=== PATIENT | male | born 1945 | race Caucasian/White ===

== ENCOUNTER → 2018-07-17 | Outpatient (CLI) | payer MEDICARE ==
[~2018-07-17] MED LIST: FENO145T30 PO; FINA5TAB4 PO; MOME13HF INH; MONT10TA6 PO; ONDA4TAB13 SL; OXYC-302 PO; TAMS-11 PO
== END | disposition home or self-care (01) ==
LOC: CFH 07:33
PROVIDERS: ATTEND Internal Medicine
DX: M17.12 Unilateral primary osteoarthritis, left knee (principal); M25.561 Pain in right knee

== ENCOUNTER → 2019-02-19 | Outpatient (CLI) | payer MEDICARE ==
[2019-02-19 16:11] LABS: BASOPHILS # (AUTO) 0.02 x10^3/uL (0-0.1); BASOPHILS % (AUTO) 0 % (0-1); EOSINOPHILS % (AUTO) 3 % (1-7); LYMPHOCYTES # (AUTO) 1.74 x10^3/uL (1-3.4); LYMPHOCYTES % (AUTO) 24 % (22-44); MD NO; MEAN CORPUSCULAR HEMOGLOBIN 32.1 pg (27.5-34.5); MEAN CORPUSCULAR HGB CONC 33.6 g/dL (33.2-36.2); MEAN CORPUSCULAR VOLUME 95.6 fL (81-97); MEAN PLATELET VOLUME 8.8 fL (7.4-10.4); MONOCYTES # (AUTO) 0.41 x10^3/uL (0.2-0.8); MONOCYTES % (AUTO) 6 % (2-9); NEUTROPHILS # (AUTO) 4.87 x10^3/uL (1.8-6.8); NEUTROPHILS % (AUTO) 67 % (42-75); PLATELET COUNT 281 x10^3/uL (130-400); RED BLOOD COUNT 5.18 x10^6/uL (4.38-5.82)
[2019-02-19 16:22] LABS: ANION GAP 6 mmol/L (5-15); CALCIUM 8.7 mg/dL (8.5-10.1); CHLORIDE 112 mmol/L (98-107); CREATININE 0.99 mg/dL (0.7-1.3)
== END | disposition home or self-care (01) ==
LOC: STAR 15:08
PROVIDERS: ATTEND Orthopaedic Surgery
DX: Z01.818 Encounter for other preprocedural examination (principal); M17.11 Unilateral primary osteoarthritis, right knee
CPT/HCPCS: 36415; 80048; 85025; 87081; 93005

== ENCOUNTER → 2019-02-23 | Outpatient (CLI) | payer MEDICARE ==
[~2019-02-23] MED LIST changes: +DEXAMETHASONE 4 MG/ML, 1ML ONE; +FENTANYL PF 250 MCG/5ML ONE; +HYDR-36 PO; +LIDOCAINE-MPF 2% ,5ML ONE; +MIDAZOLAM 1 MG/ML, 2ML ONE; +ONDANSETRON 2MG/ML, 2ML ONE; +PROPOFOL 10 MG/ML, 20ML ONE; +ROCURONIUM 10MG/ML,5ML ONE
== END | disposition home or self-care (01) ==
LOC: CFH 08:37
PROVIDERS: ATTEND Internal Medicine
DX: R05 Cough (principal)
CPT/HCPCS: 71046

== ENCOUNTER 2019-02-25 09:07 | Observation (INO) | payer MEDICARE ==
[~2019-02-25] VITALS: Ht 172.7 cm; Wt 96.0 kg
[~2019-02-25 09:07] MED LIST changes: -DEXAMETHASONE 4 MG/ML, 1ML ONE; -FENTANYL PF 250 MCG/5ML ONE; -HYDR-36 PO; -LIDOCAINE-MPF 2% ,5ML ONE; -MIDAZOLAM 1 MG/ML, 2ML ONE; -ONDANSETRON 2MG/ML, 2ML ONE; -PROPOFOL 10 MG/ML, 20ML ONE; -ROCURONIUM 10MG/ML,5ML ONE
[2019-02-25 09:29] VITALS: BP 148/90
[2019-02-25] MEDS ORDERED: LACTATED RINGERS 1,000 ML IV SCH (09:32)
[2019-02-25] MEDS ORDERED: DEXAMETHASONE 4 MG/ML, 1ML ONE ×2 (10:37→11:28)
[2019-02-25] MEDS ORDERED: PROPOFOL 10 MG/ML, 20ML ONE ×2 (10:37→11:28)
[2019-02-25] MEDS ORDERED: LIDOCAINE-MPF 2% ,5ML ONE (10:37)
[2019-02-25] MEDS ORDERED: FENTANYL PF 250 MCG/5ML ONE (10:37)
[2019-02-25] MEDS ORDERED: ESTRADIOL 0.1 MG/24 HR PATCH ONE (10:37)
[2019-02-25] MEDS ORDERED: MIDAZOLAM 1 MG/ML, 2ML ONE (10:37)
[2019-02-25] MEDS ORDERED: ROCURONIUM 10MG/ML,5ML ONE (10:37)
[2019-02-25] MEDS ORDERED: ONDANSETRON 2MG/ML, 2ML ONE ×2 (10:37→11:28)
[2019-02-25] MEDS ORDERED: ROPIvacaine/PF 0.2%, 20 ML ONE (11:01)
[2019-02-25] MEDS ORDERED: TRANEXAMIC ACID 100 MG/ML, 10ML ONE (11:01)
[2019-02-25] MEDS ORDERED: KETOROLAC 60 MG/2 ML ONE (11:01)
[2019-02-25] MEDS ORDERED: VANCOMYCIN 1,000 MG ONE (11:02)
[2019-02-25] MEDS ORDERED: SODIUM CHLORIDE 0.9% 50 ML ONE (11:02)
[2019-02-25] MEDS ORDERED: EPINEPHRINE 1 MG/ML, 1ML ONE (11:02)
[2019-02-25] MEDS ORDERED: CEFAZOLIN 1,000 MG ONE (11:28)
[2019-02-25] MEDS ORDERED: LABETALOL 5MG/ML, 20ML IV PRN (12:00)
[2019-02-25] MEDS ORDERED: ONDANSETRON 2MG/ML, 2ML IV PRN ×2 (12:00→12:30)
[2019-02-25] MEDS ORDERED: MEPERIDINE/PF 25MG/ML,1ML IVPush PRN (12:00)
[2019-02-25] MEDS ORDERED: METOCLOPRAMIDE 5 MG/ML, 2ML IV PRN (12:00)
[2019-02-25] MEDS ORDERED: OXYcodone 5 MG/5 ML ORAL.SOL UDC PO PRN (12:00)
[2019-02-25] MEDS ORDERED: hydrALAzine 20 MG/ML, 1ML IV PRN (12:00)
[2019-02-25] MEDS ORDERED: ACETAMINOPHEN 325 MG TABLET PO PRN (12:00)
[2019-02-25] MEDS ORDERED: LORazepam 2 MG/ML, 1ML IVPush PRN (12:00)
[2019-02-25] MEDS ORDERED: ZOLPIDEM 5MG TABLET PO PRN (12:30)
[2019-02-25] MEDS ORDERED: PROMETHAZINE 12.5 MG SUPP PR PRN (12:30)
[2019-02-25] MEDS ORDERED: MOMETASONE INH PRN (12:30)
[2019-02-25] MEDS ORDERED: ACETAMINOPHEN 500 MG TABLET PO SCH (12:30)
[2019-02-25] MEDS ORDERED: FORMOTEROL INH PRN (12:30)
[2019-02-25] MEDS ORDERED: BISACODYL 10 MG SUPP PR PRN (12:30)
[2019-02-25] MEDS ORDERED: DIAZEPAM 5 MG TABLET PO PRN (12:30)
[2019-02-25] MEDS ORDERED: SENNA/DOCUSATE TABLET PO PRN (12:30)
[2019-02-25] MEDS ORDERED: ONDANSETRON 4 MG TABLET PO PRN (12:30)
[2019-02-25] MEDS ORDERED: PSYLLIUM PACKET PO PRN (12:30)
[2019-02-25] MEDS ORDERED: ALUMINUM/MAG/SIMETHICONE 30 ML UDC PO PRN (12:30)
[2019-02-25] MEDS ORDERED: PROMETHAZINE 25 MG/ML, 1ML IM PRN (12:30)
[2019-02-25] MEDS ORDERED: HYDROcodone/APAP 10/325 MG TABLET PO PRN (12:30)
[2019-02-25] MEDS ORDERED: MAGNESIUM HYDROXIDE 8%, 30ML UDC PO PRN (12:30)
[2019-02-25] MEDS ORDERED: SCOPOLAMINE PATCH, 1.5MG PATCH.TD72 TD SCH (12:30)
[2019-02-25] MEDS ORDERED: HYDROmorphone 1 MG/ML, 1ML INJ IVPush PRN (12:30)
[2019-02-25] MEDS ORDERED: DIPHENHYDRAMINE 25 MG CAPSULE PO PRN (12:30)
[2019-02-25] MEDS ORDERED: TRANEXAMIC ACID 1,000 MG in SODIUM CHLORIDE 0.9% 100 ML IVPB ONE (13:00)
[2019-02-25] MEDS ORDERED: FENTANYL PF 100 MCG/2ML ONE (13:03)
[2019-02-25] MEDS ORDERED: OXYcodone 5 MG/5 ML ORAL.SOL UDC ONE ×2 (13:04→13:06)
[2019-02-25] MEDS: FENTANYL PF 100 MCG/2ML IV PRN ×2 (13:05→13:10)
[2019-02-25] MEDS ORDERED: HYDROmorphone 1 MG/ML, 1ML INJ ONE (13:19)
[2019-02-25] MEDS: HYDROmorphone 2 MG/ML, 1ML IVPush PRN ×2 (13:20→13:30)
[2019-02-25 14:58] VITALS: BP 171/91
[2019-02-25 15:17] VITALS: BP 182/92
[2019-02-25] MEDS: D5%-0.45% NACL 1,000 ML IV SCH (15:50)
[2019-02-25] MEDS: CALCIUM/VITAMIN D3 250-125 TABLET PO SCH (17:01)
[2019-02-25] MEDS: FERROUS SULFATE 325 MG TABLET PO SCH (17:01)
[2019-02-25 19:30] VITALS: BP 149/88
[2019-02-25] MEDS: KETOROLAC 30 MG/1 ML IV SCH (20:02)
[2019-02-25] MEDS: DOCUSATE 100 MG CAPSULE PO SCH (20:02)
[2019-02-25] MEDS: ASPIRIN 81 MG TABLET EC PO SCH (20:02)
[2019-02-25] MEDS: CEFAZOLIN PMX 2GM/50ML 50 ML IVPB SCH (20:04)
[2019-02-25] MEDS: ACETAMINOPHEN 500 MG TABLET PO SCH (22:19)
[2019-02-25 23:37] VITALS: BP 153/84
[2019-02-26] MEDS: D5%-0.45% NACL 1,000 ML IV SCH (01:45)
[2019-02-26 03:26] VITALS: BP 159/86
[2019-02-26] MEDS: ACETAMINOPHEN 500 MG TABLET PO SCH ×2 (03:59→10:20)
[2019-02-26] MEDS: KETOROLAC 30 MG/1 ML IV SCH ×2 (03:59→11:58)
[2019-02-26] MEDS: CEFAZOLIN PMX 2GM/50ML 50 ML IVPB SCH (03:59)
[2019-02-26] MEDS ORDERED: DEXAMETHASONE 4 MG/ML, 1ML IVPush ONE (06:00)
[2019-02-26] MEDS: CALCIUM/VITAMIN D3 250-125 TABLET PO SCH ×2 (07:51→11:58)
[2019-02-26] MEDS: FERROUS SULFATE 325 MG TABLET PO SCH (07:51)
[2019-02-26] MEDS: DOCUSATE 100 MG CAPSULE PO SCH (07:52)
[2019-02-26] MEDS: ASPIRIN 81 MG TABLET EC PO SCH (07:59)
[2019-02-26] MEDS ORDERED: FENOFIBRATE 145 MG TABLET PO SCH (09:00)
[2019-02-26] MEDS ORDERED: ASCORBIC ACID 500 MG TABLET PO SCH (09:00)
[2019-02-26] MEDS ORDERED: MULTIVITAMINS/MINERALS TABLET PO SCH (09:00)
[2019-02-26 09:07] VITALS: BP 128/75
[2019-02-26] MEDS ORDERED: HYDR-36 PO (09:40)
[2019-02-26 12:42] VITALS: BP 145/80
[2019-02-26] MEDS ORDERED: MONTELUKAST 10 MG TABLET PO SCH (21:00)
== END 2019-02-26 13:27 | disposition home or self-care (01) ==
LOC: OUT 09:07 → 4NE 14:50 → OUT 23:24 → 4NE 23:25 → DCLOUNGE 02-26 13:10
PROVIDERS: ADMIT Orthopaedic Surgery; ATTEND Orthopaedic Surgery
DX: M17.11 Unilateral primary osteoarthritis, right knee (principal); J45.909 Unspecified asthma, uncomplicated; Z79.899 Other long term (current) drug therapy; Z88.0 Allergy status to penicillin; Z88.1 Allergy status to other antibiotic agents; Z91.040 Latex allergy status; Z79.82 Long term (current) use of aspirin
CPT/HCPCS: 27447; 36415; 73560; 85014; 85018; 96365; 96366; 96375; 96376; 97110; 97161; C1713; C1776; G0378; J0171; J0690; J1100; J1170; J1885; J2250; J2405; J2704; J2795; J3010; J3370

== ENCOUNTER → 2019-12-21 | Outpatient (CLI) | payer MEDICARE ==
[~2019-12-21] MED LIST changes: +FENO145T19 PO; -FENO145T30 PO; +HYDR-3246 PO
== END | disposition home or self-care (01) ==
LOC: RAD 12:08
PROVIDERS: ATTEND Internal Medicine
DX: M51.36 Other intervertebral disc degeneration, lumbar region (principal); M79.609 Pain in unspecified limb
CPT/HCPCS: 72100; 72170

== ENCOUNTER → 2020-05-05 | Outpatient (CLI) | payer MEDICARE ==
[~2020-05-05] MED LIST changes: -HYDR-3246 PO; +HYDR-3248 PO; -OXYC-302 PO; +OXYC1TAB14 PO
== END | disposition home or self-care (01) ==
LOC: LAB 16:08
PROVIDERS: ATTEND Internal Medicine
DX: R05 Cough (principal)
CPT/HCPCS: 71046